=== PATIENT | male | born 1985 | race Native Hawaiian/Other Pacific Islander ===

== ENCOUNTER 2017-02-08 01:47 | Emergency (ER) | payer SELFPAY ==
[2017-02-08 02:32] VITALS: BP 160/90
[2017-02-08] MEDS ORDERED: MOTRIN PO ONE (02:32)
--- NOTE | 2017-02-08 07:50 | Emergency Department Report ---
ED ENT HPI - General Chief complaint: Earache Stated complaint: EAR INFECTION Time Seen by Provider: 02/08/17 07:42 Source: patient Mode of arrival: Ambulatory Limitations: No Limitations - History of Present Illness Initial comments: Pt has had R ear pain x 3 days. Went to urgent care and given amoxil and some drops that the pharmacy was out of. States it is getting worse. No fever. MD complaint: ear pain -: Gradual, days(s) (3) Location: R ear Severity: moderate Severity scale (0 -10): 7 Quality: constant Improves with: none Worsens with: none Associated Symptoms: discharge from ear. denies: fever, cough, sore throat - Related Data Previous Rx's Medication Instructions Recorded Last Taken Type Acetaminophen/Codeine [Tylenol 1 tab PO Q4HR PRN #15 tablet 02/08/17 Unknown Rx /Codeine # 3 tab] Ciprofloxacin HCl [Ciprofloxacin 500 mg PO Q12HR #20 tab 02/08/17 Unknown Rx TAB] Neomy/Polymyx B/Hc Otic Susp 4 drops AD TID #1 bottle 02/08/17 Unknown Rx [Cortisporin (Otic) Susp] Allergies Allergy/AdvReac Type Severity Reaction Status Date / Time No Known Allergies Allergy Unverified 02/08/17 02:31 ED Dental HPI - General Chief complaint: Earache Stated complaint: EAR INFECTION Time Seen by Provider: 02/08/17 07:42 Source: patient Mode of arrival: Ambulatory Limitations: No Limitations - Related Data Previous Rx's Medication Instructions Recorded Last Taken Type Acetaminophen/Codeine [Tylenol 1 tab PO Q4HR PRN #15 tablet 02/08/17 Unknown Rx /Codeine # 3 tab] Ciprofloxacin HCl [Ciprofloxacin 500 mg PO Q12HR #20 tab 02/08/17 Unknown Rx TAB] Neomy/Polymyx B/Hc Otic Susp 4 drops AD TID #1 bottle 02/08/17 Unknown Rx [Cortisporin (Otic) Susp] Allergies Allergy/AdvReac Type Severity Reaction Status Date / Time No Known Allergies Allergy Unverified 02/08/17 02:31 ED Review of Systems ROS: Stated complaint: EAR INFECTION Other details as noted in HPI Comment: All other systems reviewed and negative Constitutional: denies: chills, fever Eyes: denies: eye pain, eye discharge, vision change ENT: ear pain. denies: throat pain Respiratory: denies: cough, shortness of breath, wheezing Cardiovascular: denies: chest pain, palpitations Endocrine: no symptoms reported Gastrointestinal: denies: abdominal pain, nausea, diarrhea Genitourinary: denies: urgency, dysuria Musculoskeletal: denies: back pain, joint swelling, arthralgia Skin: denies: rash, lesions Neurological: denies: headache, weakness, paresthesias Psychiatric: denies: anxiety, depression Hematological/Lymphatic: denies: easy bleeding, easy bruising ED Past Medical Hx - Past Medical History Additional medical history: Obesity. - Surgical History Additional Surgical History: Umbilical Hernia Repair - Social History Smoking Status: Never Smoker Substance Use Type: None - Medications Home Medications: Home Medications Medication Instructions Recorded Confirmed Last Taken Type Acetaminophen/Codeine [Tylenol 1 tab PO Q4HR PRN #15 tablet 02/08/17 Unknown Rx /Codeine # 3 tab] Ciprofloxacin HCl [Ciprofloxacin 500 mg PO Q12HR #20 tab 02/08/17 Unknown Rx TAB] Neomy/Polymyx B/Hc Otic Susp 4 drops AD TID #1 bottle 02/08/17 Unknown Rx [Cortisporin (Otic) Susp] ED Physical Exam - General Limitations: No Limitations General appearance: alert, in no apparent distress - Head Head exam: Present: atraumatic, normocephalic - Eye Eye exam: Present: normal appearance - ENT ENT exam: Present: mucous membranes moist, other (There is mild swelling to the external R ear. No mastoid tenderness. Significant canal edema and mild drainage noted consistent with otitis externa. ) - Neck Neck exam: Present: normal inspection. Absent: meningismus - Respiratory Respiratory exam: Present: normal lung sounds bilaterally. Absent: respiratory distress - Cardiovascular Cardiovascular Exam: Present: regular rate, normal rhythm. Absent: systolic murmur, diastolic murmur, rubs, gallop - GI/Abdominal GI/Abdominal exam: Present: soft, normal bowel sounds - Rectal Rectal exam: Present: deferred - Extremities Exam Extremities exam: Present: normal inspection - Back Exam Back exam: Present: normal inspection - Neurological Exam Neurological exam: Present: alert, oriented X3 - Psychiatric Psychiatric exam: Present: normal affect, normal mood - Skin Skin exam: Present: warm, dry, intact, normal color. Absent: rash ED Course Vital Signs 02/08/17 02:21 Temperature 98.9 F Pulse Rate 100 H Blood Pressure 160/90 O2 Sat by Pulse 96 Oximetry - Reevaluation(s) Reevaluation #1: 02/08/17 07:47 Pt is in NAD and stable for d/c. ED Medical Decision Making - Medical Decision Making Pt has a moderate otitis externa which will necessitate oral Cipro. Will also RX topical therapy but discussed importance of oral abx. Follow up with PCP/ENT in 3 days. - Differential Diagnosis OM, OE, mastoiditis Critical care attestation.: If time is entered above; I have spent that time in minutes in the direct care of this critically ill patient, excluding procedure time. ED Disposition Clinical Impression: Otitis externa Qualifiers: Otitis externa type: unspecified type Chronicity: acute Laterality: right Qualified Code(s): H60.501 - Unspecified acute noninfective otitis externa, right ear Disposition: DC- TO HOME OR SELFCARE Is pt being admited?: No Does the pt Need Aspirin: No Condition: Good Instructions: Otitis Externa (ED) Prescriptions: Acetaminophen/Codeine [Tylenol /Codeine # 3 tab] 1 tab PO Q4HR PRN #15 tablet PRN Reason: Pain Ciprofloxacin HCl [Ciprofloxacin TAB] 500 mg PO Q12HR #20 tab Neomy/Polymyx B/Hc Otic Susp [Cortisporin (Otic) Susp] 4 drops AD TID #1 bottle Referrals: PRIMARY CARE, [Primary Care Provider] - 3-5 Days TATE HERBERT MD [Staff Physician] - 3-5 Days Time of Disposition: 07:49
== END 2017-02-08 08:44 | disposition home or self-care (01) ==
LOC: ED 01:47
DX: H60.91 Unspecified otitis externa, right ear (principal)
CPT/HCPCS: 99282